=== PATIENT | female | born 1940 | race Caucasian/White ===

== ENCOUNTER 2025-01-25 14:15 | Emergency (ER) | payer OTHER ==
--- OUTSIDE RECORDS SUMMARY | 2025-01-25 14:17 | XMS REPORT | Continuity of Care Document ---
Author Name Unknown Address [address] [facility] [address] [place] [address] [facility] Address [address] [facility] [address] [place] [address] Care Team Providers [facility] Agent Name Role Phone Pcp, Patient Does Not Have A Primary Care Physic caden BRETT SOLIS Attending Clinician Unavailable YAMIL FOSTER Attending Clinician Unavailable Eula Magaña APRN Attending Clinician [phone] Kim Nielsen RN Attending Clinician YAMIL Womack Attending Clinician Amina Stewart MA Attending Clinician Devan Becerril NP Attending Clinician [phone] DEVAN PISANO Attending Clinician YAMIL Lizama Admitting Clinician YAMIL Womack Admitting Clinician Unavailable Payers Payer Name Policy Type Policy Number Effective Date Expirati on Date Source [employer] MEDICARE PPO [id number] 2021 00:00:00 MEDICARE PART A \T\ B [id number] 2022 00:00:00 2022 00:00:00 Problems Condition Name Condition Details Condition Category Status Onset Date Resolution Date Last Treatment Date Treating Clinician Comments Source Abundio salvador prolapse, complete Uterovagin al prolapse, complete Disease Active 02-02 00:00: 00 [facility] Dysuria Dysuria Disease Active 02-02 00:00: 00 [facility] Elevated blood pressure reading without diagnosis of hypertensi on Elevated blood pressure reading without diagnosis of hypertensi on Disease Active 02-02 00:00: 00 [facility] Hyperlipid emia, unspecifie d hyperlipid emia type Hyperlipid emia, unspecifie d hyperlipid emia type Disease Active 02-02 00:00: 00 [facility] Allergies, Adverse Reactions, Alerts Allergy Name Allergy Type Status Severity Reaction(s) Onset Date Inactive Date Treating Clinician Comments Source Oxytetra cycline Propensi ty to adverse reaction s Active 02-08 00:00: 00 [facility] Levoflox acin Propensi ty to adverse reaction s Active 02-08 00:00: 00 [facility] Codeine Propensi ty to adverse reaction s to drug Active Unknown - See comments 02-02 00:00: 00 [facility] Levamlod ipine Propensi ty to adverse reaction s Active Unknown - See comments 02-02 00:00: 00 [facility] Penicill in Propensi ty to adverse reaction s to drug Active Unknown - See comments 02-02 00:00: 00 [facility] Sulfa (Sulfona mide Antibiot ics) Propensi ty to adverse reaction s to drug Active Unknown - See comments 02-02 00:00: 00 [facility] Penicill in G Propensi ty to adverse reaction s Active 02-02 00:00: 00 Other reaction( s): Unknown - See comments [facility] Sulfa Antibiot ics Propensi ty to adverse reaction s Active 02-02 00:00: 00 Other reaction( s): Unknown - See comments [facility] Codeine Propensi ty to adverse reaction s Active 02-02 00:00: 00 Other reaction( s): Unknown - See comments [facility] Social History Social Habit Start Date Stop Date Quantity Comments Source Sexual orientation 2024-02-14 15:40:52 Heterosexual (finding) [facility] Alcoholic beverage intake 2024-02-21 00:00:00 2024-02-21 00:00:00 Current drinker of alcohol (finding) [facility] History of Social function 2024-02-21 00:00:00 2024-02-21 00:00:00 [facility] Exposure to SARS-CoV-2 (event) 2023-02-02 00:00:00 2023-02-12 18:56:00 Not sure [facility] Alcohol intake 2022-09-03 00:00:00 2022-09-03 00:00:00 Current drinker of alcohol (finding) [facility] Tobacco use and exposure 2022-02-08 00:00:00 2022-02-08 00:00:00 Smokeless tobacco non-user [facility] Sex assigned at 1940 00:00:00 1940 00:00:00 F [facility] Smoking Status Start Date Stop Date Source Never smoked tobacco [facility] Medications Ordered Medication Name Filled Medication Name Start Date Stop Date Current Medication? Ordering Clinician Indication Dosage Frequency Signature (SIG) Comments Components Source metoprolol succinate XL (Toprol-XL) 25 MG 24 hr tablet 01-15 00:00: 00 Yes 25mg QD Take 25 mg by mouth 1 (one) time each day. [facility] estradiol (Estrace) 0.1 MG/GM vaginal cream 2021-11 00:00: 00 Yes 5519 .5g Insert 0.5 g into the vagina 2 (two) times a week. 0.5 gram per vagina nightly for 7 days then 0.5 gram per vagina nightly twice weekly [facility] nitrofurant oin, macrocrysta l-monohydra te, (Macrobid) 100 MG capsule 05-28 00:00: 00 06-05 04:59 :00 No [id number] 100mg Q.5D Take 1 capsule (100 mg total) by mouth in the morning and 1 capsule (100 mg total) in the evening. Do all this for 7 days. [facility] metroNIDAZO LE (Flagyl) 500 MG tablet 05-14 00:00: 00 05-20 04:59 :00 No [id number] 500mg Q.5D Take 1 tablet (500 mg total) by mouth in the morning and 1 tablet (500 mg total) in the evening. Do all this for 5 days. [facility] nitrofurant oin, macrocrysta l-monohydra te, (Macrobid) 100 MG capsule 05-08 00:00: 00 05-16 04:59 :00 No [id number] 100mg Q.5D Take 1 capsule (100 mg total) by mouth in the morning and 1 capsule (100 mg total) in the evening. Do all this for 7 days. [facility] docusate sodium (Colace) 100 MG capsule 05-03 00:00: 00 Yes [id number] 100mg Q.5D Take 1 capsule (100 mg total) by mouth in the morning and 1 capsule (100 mg total) in the evening. [facility] ibuprofen 600 MG tablet 05-03 00:00: 00 05-11 04:59 :00 No [id number] 9105 600mg Q6H Take 1 tablet (600 mg total) by mouth every 6 (six) hours if needed for mild pain for up to 7 days. [facility] promethazin e (Phenergan) 25 MG tablet 05-03 00:00: 00 05-11 04:59 :00 No [id number] 12.5mg Q6H Take 0.5 tablets (12.5 mg total) by mouth every 6 (six) hours if needed for nausea or vomiting for up to 7 days. [facility] traMADol (Ultram) 50 MG tablet 05-03 00:00: 00 05-11 04:59 :00 No [id number] 9105 50mg Take 1 tablet (50 mg total) by mouth every 8 (eight) hours if needed for severe pain for up to 7 days. [facility] Myrbetriq 25 MG tablet sustained-r elease 24 hour -06 00:00: 00 08-04 00:00 :00 No 1{tbl} Take 1 tablet by mouth 1 (one) time each day in the morning. [facility] atorvastati n (Lipitor) 10 MG tablet 12-08 00:00: 00 Yes 10mg QD Take 10 mg by mouth 1 (one) time each day. [facility] Vital Signs Vital Name Observation Time Observation Value Comments S our Systolic blood pressure 2024-02-21 16:01:00 136 mm[Hg] [facility] Diastolic blood pressure 2024-02-21 16:01:00 78 mm[Hg] [facility] Body temperature 2024-02-21 16:01:00 36.67 Carmen [facility] Body height 2024-02-21 16:01:00 157.5 cm [facility] Body weight 2024-02-21 16:01:00 59.603 [facility] BMI 2024-02-21 16:01:00 24.03 kg/m2 [facility] Systolic blood pressure 2023-02-14 16:09:00 132 mm[Hg] [facility] Diastolic blood pressure 2023-02-14 16:09:00 70 mm[Hg] [facility] Body temperature 2023-02-14 16:09:00 36.22 Carmen [facility] Body height 2023-02-14 16:09:00 157.5 cm [facility] Body weight 2023-02-14 16:09:00 58.514 [facility] BMI 2023-02-14 16:09:00 23.59 kg/m2 [facility] Systolic blood pressure 2022-09-03 14:53:00 154 mm[Hg] [facility] Diastolic blood pressure 2022-09-03 14:53:00 84 mm[Hg] [facility] Heart rate 2022-09-03 14:53:00 89 /min [facility] Body temperature 2022-09-03 14:53:00 36.17 Carmen [facility] Body height 2022-09-03 14:53:00 157.5 cm [facility] Body weight 2022-09-03 14:53:00 56.246 [facility] BMI 2022-09-03 14:53:00 22.68 kg/m2 [facility] Systolic blood pressure 2022-07-29 19:09:00 136 mm[Hg] [facility] Diastolic blood pressure 2022-07-29 19:09:00 70 mm[Hg] [facility] Body temperature 2022-07-29 19:09:00 36.22 Carmen [facility] Body height 2022-07-29 19:09:00 157.5 cm [facility] Body weight 2022-07-29 19:09:00 58.514 [facility] BMI 2022-07-29 19:09:00 23.59 kg/m2 [facility] Systolic blood pressure 2022-06-17 19:03:00 134 mm[Hg] [facility] Diastolic blood pressure 2022-06-17 19:03:00 82 mm[Hg] [facility] Body height 2022-06-17 19:03:00 157.5 cm [facility] Body weight 2022-06-17 19:03:00 58.514 [facility] BMI 2022-06-17 19:03:00 23.59 kg/m2 [facility] Systolic blood pressure 2022-05-20 18:51:00 148 mm[Hg] [facility] Diastolic blood pressure 2022-05-20 18:51:00 80 mm[Hg] [facility] Body temperature 2022-05-20 18:51:00 36.44 Carmen [facility] Body height 2022-05-20 18:51:00 157.5 cm [facility] Body weight 2022-05-20 18:51:00 58.514 [facility] BMI 2022-05-20 18:51:00 23.59 kg/m2 [facility] Systolic blood pressure 2022-05-14 21:55:00 152 mm[Hg] [facility] Diastolic blood pressure 2022-05-14 21:55:00 87 mm[Hg] [facility] Heart rate 2022-05-14 21:55:00 99 /min [facility] Body temperature 2022-05-14 21:55:00 36.39 Carmen [facility] Body height 2022-05-14 21:55:00 157.5 cm [facility] Body weight 2022-05-14 21:55:00 58.627 [facility] BMI 2022-05-14 21:55:00 23.64 kg/m2 [facility] Systolic blood pressure 2022-05-10 13:09:00 130 mm[Hg] [facility] Diastolic blood pressure 2022-05-10 13:09:00 64 mm[Hg] [facility] Body temperature 2022-05-10 13:09:00 36.44 Carmen [facility] Body height 2022-05-10 13:09:00 157.5 cm [facility] Body weight 2022-05-10 13:09:00 57.153 kg [facility] BMI 2022-05-10 13:09:00 23.05 kg/m2 [facility] Systolic blood pressure 2022-02-02 21:33:00 164 mm[Hg] [facility] Diastolic blood pressure 2022-02-02 21:33:00 90 mm[Hg] [facility] Heart rate 2022-02-02 20:52:00 86 /min [facility] Body temperature 2022-02-02 20:52:00 36.78 Carmen [facility] Respiratory rate 2022-02-02 20:52:00 18 /min [facility] Body height 2022-02-02 20:52:00 157.5 cm [facility] Body weight 2022-02-02 20:52:00 57.97 kg [facility] BMI 2022-02-02 20:52:00 23.37 kg/m2 [facility] Oxygen saturation in Arterial blood by Pulse oximetry 2022-02-02 20:52:00 98 /min [facility] Procedures Procedure Date / Time Performed Performing Clinicia n Source POCT URINALYSIS DIPSTICK 2022-09-03 15:29:00 [facility] URINE CULTURE 2022-05-14 22:13:00 [facility] POCT URINALYSIS DIPSTICK 2022-05-14 22:13:00 [facility] hospital POCT URINALYSIS 2022-02-02 21:45:00 Cierra Hidalgo [facility] URINE CULTURE 2022-02-02 21:24:00 Cierra Hidalgo [facility] Encounters Start Date/Time End Date/Time Encounter Type Admission Type Attending Clinicians Care Facility Care Department Encounter ID Source 2023-02-14 10:51:48 Outpatient [facility] [id number] [facility] 2022-09-02 16:13:50 Outpatient [facility] [id number] [facility] 2022-02-02 08:57:03 Outpatient BRETT SOLIS [facility] [id number] [facility] 2025-02-21 11:20:00 2025-02-21 11:20:00 Outpatient YAMIL FOSTER [facility] [id number] [facility] 2024-02-21 11:00:00 2024-02-21 11:27:47 Office Visit Yamil Foster [facility] [place] [address] [place] 1.2.840.114 350.1.13.58 9.2.7.2.686 [id number] [facility] 2023-02-14 11:00:00 2023-02-14 11:23:29 Office Visit Yamil Foster [facility] [place] [address] [place] 1.2.840.114 350.1.13.58 9.2.7.2.686 [id number] [facility] 2022-11-01 11:20:00 2022-11-01 11:20:00 Outpatient YAMIL FOSTER [facility] [id number] [facility] 2022-09-03 10:10:00 2022-09-03 11:54:01 Office Visit Yamil Foster [facility] [address] 1.2.840.114 350.1.13.58 9.2.7.2.686 [id number] [facility] 2022-07-29 14:10:00 2022-07-29 14:35:21 Office Visit Yamil Foster [facility] [place] [address] [place] 1.2.840.114 350.1.13.58 9.2.7.2.686 [id number] [facility] 2022-06-17 14:10:00 2022-06-17 14:24:08 Office Visit Eula Magaña [facility] [place] [address] [place] 1.2.840.114 350.1.13.58 9.2.7.2.686 [id number] [facility] 2022-05-31 00:00:00 2022-05-31 00:00:00 Telephone Kim Nielsen Amanda [facility] [place] [address] [place] 1.2.840.114 350.1.13.58 9.2.7.2.686 [id number] [facility] 2022-05-28 00:00:00 2022-05-28 00:00:00 Telephone Kim Nielsen Amanda [facility] [place] [address] [place] 1.2.840.114 350.1.13.58 9.2.7.2.686 [id number] [facility] 2022-05-20 14:10:00 2022-05-20 14:14:58 Office Visit Yamil Foster [facility] [place] [address] [place] 1.2.840.114 350.1.13.58 9.2.7.2.686 [id number] [facility] 2022-05-19 00:00:00 2022-05-19 00:00:00 Telephone Kim Nielsen Amanda [facility] [place] [facility] [address] [place] 1.2.840.114 350.1.13.58 9.2.7.2.686 [id number] [facility] 2022-05-18 00:00:00 2022-05-18 00:00:00 Telephone Kim Nielsen Amanda [facility] [place] [facility] [address] [place] 1.2.840.114 350.1.13.58 9.2.7.2.686 [id number] [facility] 2022-05-14 16:10:00 2022-05-14 16:30:00 Office Visit Yamil Foster [facility] [address] 1.2.840.114 350.1.13.58 9.2.7.2.686 [id number] [facility] 2022-05-14 00:00:00 2022-05-14 00:00:00 Telephone Kim Nielsen Amanda [facility] [place] [facility] [address] [address] [place] 1.2.840.114 350.1.13.58 9.2.7.2.686 [id number] [facility] 2022-05-13 00:00:00 2022-05-13 00:00:00 Telephone Kim Nielsen Amanda [facility] [place] [facility] [address] [address] [place] 1.2.840.114 350.1.13.58 9.2.7.2.686 [id number] [facility] 2022-05-10 08:20:00 2022-05-10 09:09:30 Office Visit Yamil Foster [facility] [place] [facility] [address] [place] 1.2.840.114 350.1.13.58 9.2.7.2.686 [id number] [facility] 2022-05-05 05:58:00 2022-05-08 17:40:00 Inpatient YAMIL FOSTER [id number] FB 2022-05-05 08:30:00 2022-05-05 08:30:00 Outpatient YAMIL FOSTER [facility] [id number] [facility] 2022-05-04 00:00:00 2022-05-04 00:00:00 Telephone Kim Nielsen Amanda [facility] [place] [facility] [address] [address] [place] 1.2.840.114 350.1.13.58 9.2.7.2.686 [id number] [facility] 2022-04-29 13:40:00 2022-04-29 14:22:46 Consult Eula Magaña [facility] [place] [facility] [address] [place] 1.2.840.114 350.1.13.58 9.2.7.2.686 [id number] [facility] 2022-03-11 00:00:00 2022-03-11 00:00:00 Telephone Amina Domingo Diana [facility] [place] [facility] [address] [place] 1.2.840.114 350.1.13.58 9.2.7.2.686 [id number] [facility] 2022-03-08 14:10:00 2022-03-08 15:29:43 Procedure Visit Yamil Foster [facility] [place] [address] [place] 1.2.840.114 350.1.13.58 9.2.7.2.686 [id number] [facility] 2022-02-15 00:00:00 2022-02-15 00:00:00 Telephone Devan Pisano [facility] 1.2.840.114 350.1.13.10 4.2.7.2.686 [id number] [facility] 2022-02-08 14:50:00 2022-02-08 16:02:02 Office Visit Yamil Foster [facility] [place] [address] [place] 1.2.840.114 350.1.13.58 9.2.7.2.686 [id number] [facility] 2022-02-05 00:00:00 2022-02-05 00:00:00 Telephone Devan Pisano [facility] 1.2.840.114 350.1.13.10 4.2.7.2.686 [id number] [facility] 2022-02-02 15:30:00 2022-02-02 16:31:08 Office Visit Devan Pisano [facility] 1.2.840.114 350.1.13.10 4.2.7.2.686 [id number] [facility] 2022-02-02 15:30:00 2022-02-02 16:31:08 Outpatient R DEVAN PISANO [facility] [id number] [facility] 2022-02-02 15:30:00 2022-02-02 16:31:08 Outpatient R ALIYADEVAN ALIYA DEVAN [facility] [id number] [facility] Results Test Description Test Time Test Comments Results Result Co mments Source [facility] [id number] 05:00:00* Test Item Value Reference Range Interpretation Comme nts CULTURE, URINE, ROUTINE (test code = 638889237) SEE NOTE ?CULTURE, URINE, ROUTINE ? ?Micro Number: ? ? ?[id number] ?Test Status: ? ? ? Final ?Specimen Source: ? Urine ?Specimen Quality: ?Adequate ?Result: ?No Growth RAC (test code = RAC) Performing Organization Information: ? ?Site ID: [facility] ? ?Name: [employer] [facility] ? ?Address: [address] [place] [id number] ? ?Director: ALINA NAVARRO MD [facility] [id number] 22:13:00* Test Item Value Reference Range Interpretation Comme nts Color, UA (test code = 1076) Yellow Clarity, UA (test code = 5226205) Clear Glucose, UA (test code = 1060160) Negative Negative Bilirubin, UA (test code = 4512368) Negative Negative Ketones, Urine (test code = 28143-9) 15mg/dl Spec Grav, UA (test code = 006054997) Blood, UA (test code = 326830813) trace-intact pH, UA (test code = 3364144) 5.0-8.5 Protein, UA (test code = 2951242) Negative Negative, Trace, 200(+2)mg/dL, 15/mg/dL Urobilinogen, UA (test code = 1249207) See_Comment [[facility]ated [facility]] The system which generated this result transmitted reference range: 0.2. The reference range was not used to interpret this result as normal/abnormal. Nitrite, UA (test code = 4576554) Negative Negative, Trace Leukocytes, UA (test code = 0382922) Negative Negative, Trace Lab Interpretation (test code = 61347-9) Normal [facility] URINALYSIS W SPECIFIC [id number] 21:45:00* Test Item Value Reference Range Interpretation Comme nts POCT U SP GRAV (test code = 3255) 1.005 mg/dl 1.005-1.025 POCT PH U (test code = 3254) 7 mg/dl 5-8 POCT U LEUK EST (test code = 3263) Negative Negative - Negative POCT U NIT (test code = 3262) Negative Negative - Negati ve POCT U PROT (test code = 3259) Negative Negative - Negative POCT U GLU (test code = 3256) Negative Negative - Negati ve POCT U KETONE (test code = 3258) Negative Negative - Negative POCT U UROBILI (test code = 3260) Negative 0.2-1 POCT U BILI (test code = 3261) Negative Negative - Negative POCT U BLD (test code = 3257) Negative Negative - Negati ve POCT U COLOR (test code = 3266) yellow POCT U APPEAR (test code = 3267) [facility]
[2025-01-25 15:19] LABS: Absolute Eosinophils 0.1 K/uL (0-0.5); Absolute Lymphocytes (CBC) 1.2 K/uL (0.7-4.9); Absolute Monocytes 0.3 K/uL (0.1-1.3); Absolute Neutrophil 2.7 K/uL (1.8-8.0); Basophils % 0.5 % (0-1.3); Eosinophils % 2.6 % (0-4.4); Hematocrit 38.6 % (36.0-45.0); Hemoglobin 13.2 g/dL (12.0-15.0); Lymphocytes % 28.4 % (15.3-44.8); MCH 30.3 pg (27.0-35.0); MCHC 34.1 g/dL (32.0-36.0); MCV 88.8 fL (80-100); MPV 9.1 fL (7.6-11.3); Monocytes % 6.8 % (3.3-12.3); Neutrophils % 61.7 % (41.7-73.7); Platelets 218 thou/uL (152-406); RBC Red Blood Cell Count 4.35 M/uL (3.86-4.86); Red Cell Distribution Width 12.8 % (12.1-15.2)
[2025-01-25 15:28] LABS: PT Prothrombin Time 11.5 SECONDS (10-13.0); PTT, Activated Partial Thromb 29.8 SECONDS (27.2-37.4); Protime INR 1.01
[2025-01-25 15:36] LABS: ALT/SGPT 41 U/L (13-56); AST/SGOT 26 U/L (15-37); Albumin 3.7 g/dL (3.4-5.0); Alkaline Phosphatase 84 U/L (45-117); Anion Gap 9.2 mEq/L (5.0-15.0); BUN Blood Urea Nitrogen 16 mg/dL (7-18); Bicarbonate 27 mEq/L (21-32); Bilirubin Total 0.5 mg/dL (0.2-1.0); Globulin 3.6 g/dL (2.3-3.5); Glomerular Filtration Rate 69 ml/min (=/>90); Glucose Level 105 mg/dL (74-106); Potassium 4.2 mEq/L (3.5-5.1); Protein, Total 7.3 g/dL (6.4-8.2); Sodium Level 139 mEq/L (136-145)
[2025-01-25 15:38] LABS: Bilirubin Direct < 0.2 mg/dL (0-0.2); Bilirubin Indirect, Calculated 0.3 mg/dL (0.2-0.8); Troponin High Sensitivity < 3.0 pg/mL (<58.9)
--- NOTE | 2025-01-25 16:20 | RAD REPORT ---
EXAMINATION: ONE VIEW CHEST XR CLINICAL INDICATION: Female, 84 years old.,CHEST PAIN TECHNIQUE: Frontal chest projection is submitted. Examination is limited by patient positioning and t echnique. COMPARISON: 06/14/2017 FINDINGS: The lungs are well inflated and clear. No pneumothorax or sizable effusion. The heart is normal in s ize. Mediastinal contours are unremarkable. IMPRESSION: No acute intrathoracic abnormalities.
--- NOTE | 2025-01-25 17:02 | RAD REPORT ---
EXAM: CT Head Brain Wo Cont HISTORY: l sided numbness COMPARISON: None TECHNIQUE: Multiple contiguous axial images were obtained for a CT of the brain without contrast. Sag ittal and coronal reformats were performed. One or more of the following dose reduction techniques were used: Automated exposure control, adjus tment of the mA and kV according to patient size, and iterative reconstruction. Unless otherwise specified, incidental findings do not require dedicated imaging follow-up. FINDINGS: No evidence of hydrocephalus, intracranial hemorrhage, or extra-axial fluid collection. The brain is normal in morphology. The calvarium is intact. Flattening of the right mandibular condylar head, could relate to prior or repeated subluxations. The visualized paranasal sinuses and mastoid air cells are essentially clear. IMPRESSION: No evidence of acute intracranial abnormality. Flattening of the right mandibular condylar head, could relate to prior or repeated subluxations.
--- NOTE | 2025-01-25 17:07 | RAD REPORT ---
EXAMINATION: CTA HEAD CLINICAL INDICATION: Female, 84 years old. l sided numbness TECHNIQUE: Axial CT images were obtained through the head after intravenous contrast utilizing angiog raphic protocol with 3D post-processing (maximum intensity projection images, volume rendered images and/or shaded surface rendered images). One or more of the following dose reduction technique s were used: Automated exposure control, adjustment of the mA and/or kV according to patient size, and/or iterative reconstruction. Unless otherwise specified, incidental findings do not require dedic ated imaging follow-up. COMPARISON: Noncontrast head CT of the same day FINDINGS: ICA: The petrous, cavernous, and supraclinoid segments of the bilateral internal carotid arteries are normal. SUSAN: Anterior cerebral arteries are normal bilaterally. The anterior communicating artery is patent. MCA: Middle cerebral arteries are normal bilaterally. SPEECH CLINICIAN: Posterior cerebral arteries are normal bilaterally. Vertebrobasilar: The vertebral arteries are patent. The basilar artery is normal in appearance. 3D images confirm these findings. IMPRESSION: No evidence of large vessel occlusion or hemodynamically significant stenosis.
--- NOTE | 2025-01-25 17:09 | RAD REPORT ---
EXAMINATION: CT Neck Angio CLINICAL INDICATION: Female, 84 years old. [facility] l sided numbness Bed Name: 14 TECHNIQUE: Axial CT images were obtained from the aortic arch to the skull base after intravenous con trast utilizing angiographic protocol. Multiplanar reformats, as well as 3D post-processing (maximum intensity projection images, volume rendered images and/or shaded surface rendered images) w ere generated and reviewed. One or more of the following dose reduction techniques were used: Automated exposure control, adjustment of the mA and/or kV according to patient size, and/or iterativ e reconstruction. Unless otherwise specified, incidental findings do not require dedicated imaging follow-up. COMPARISON: No prior exam. FINDINGS: AORTA: The imaged aortic arch is normal. Variant anatomy of the arch with left vertebral artery arisi ng directly from the arch. CCA: No artifact The common carotid arteries are patent and normal in caliber. ICA/ECA: Bilateral internal and external carotid arteries are patent. There is no significant interna l carotid artery stenosis. VERTEBRAL: The cervical vertebral arteries are patent to the skull base. Vertebral arteries are codom inant. SOFT TISSUE: No significant neck soft tissue abnormalities. The visualized lung apices are clear. 3D images confirm these findings. IMPRESSION: No significant flow abnormality of the neck vessels is identified. NASCET criteria used to quantify ICA stenosis, with the following grading scheme: Mild 0-49% stenosis Moderate 50-69% stenosis Severe 70-99% stenosis Reference: [place] Symptomatic Carotid Endarterectomy Trial Collaborators; Laila BUCKLEY, Katerina ANNA, Rena RB, et al. Beneficial effect of carotid endarterectomy in symptomatic patients with high-grade carotid stenosis. N Engl J Med. 1990Jun 28;325(7):445-53.
--- NOTE | 2025-01-25 18:08 | ER ---
Nurse's Notes [facility] Name: Angelica Ochoa Age: 84 yrs Sex: Female : 1940 Arrival Date: 01/25/2025 Time: 14:15 Bed 14 Private MD: Diagnosis: Chest pain, unspecified;Numbness to left side of face;Numbness to left arm Presentation: 01/25 14:19 Chief complaint: Intermittent left arm tingling and SOB x 2 weeks, intermittent left hb sided facial tingling x 1 month, intermittent left sided chest pain since this morning that became worse 2 hours ago. Coronavirus screen: At this time, the client does not indicate any symptoms associated with coronavirus-19. Ebola Screen: No symptoms or risks identified at this time. Initial Sepsis Screen: Does the patient meet any 2 criteria? No. Patient's initial sepsis screen is negative. Does the patient have a suspected source of infection? No. Patient's initial sepsis screen is negative. Risk Assessment: Do you want to hurt yourself or someone else? Patient reports no desire to harm self or others. Onset of symptoms was January 23, 2025. 14:19 Method Of Arrival: Ambulatory hb 14:19 Acuity: CB 2 hb Triage Assessment: 14:35 General: Appears in no apparent distress. Behavior is cooperative. Pain: Complains of kj2 pain in chest pain. Historical: - Allergies: 14:21 PENICILLINS; hb 14:21 Sulfa (Sulfonamide Antibiotics); hb 14:21 Codeine; hb 14:21 Levaquin; hb - PMHx: 14:27 Hypertension; hb - Immunization history:: Adult Immunizations up to date. - Infectious Disease History:: Denies. - Social history:: Smoking status: Patient denies any tobacco usage or history of. - Family history:: not pertinent. Screenin:36 [facility] ED Fall Risk Assessment (Adult) History of falling in the last 3 months, kj2 including since admission No falls in past 3 months (0 pts) Confusion or Disorientation No (0 pts) Intoxicated or Sedated No (0 pts) Impaired Gait No (0 pts) Mobility Assist Device Used No (0 pt) Altered Elimination No (0 pt) Score/Fall Risk Level 0 - 2 = Low Risk Maintained a safe environment, Hourly rounding (assess needs \T\ fall precautionary measures) done. Abuse screen: Denies threats or abuse. Denies injuries from another. Nutritional screening: No deficits noted. Tuberculosis screening: No symptoms or risk factors identified. Assessment: 14:34 General: Appears in no apparent distress. Behavior is calm, cooperative. Pain: praveen Complains of pain in left side chest, left arm Pain does not radiate. Pain began 2-3 days ago. Neuro: Level of Consciousness is awake, alert, obeys commands, Oriented to person, place, time, situation. Cardiovascular: Reports chest pain, Patient's skin is warm and dry. Respiratory: Reports shortness of breath on exertion. GI: No signs and/or symptoms were reported involving the gastrointestinal system. : No signs and/or symptoms were reported regarding the genitourinary system. 15:30 Reassessment: Patient appears in no apparent distress at this time. Patient and/or mariaa2 family updated on plan of care and expected duration. Pain level reassessed. Patient is alert, oriented x 3, equal unlabored respirations, skin warm/dry/pink. 16:30 Reassessment: Patient appears in no apparent distress at this time. Patient and/or kj2 family updated on plan of care and expected duration. Pain level reassessed. Patient is alert, oriented x 3, equal unlabored respirations, skin warm/dry/pink. 17:25 Reassessment: Patient appears in no apparent distress at this time. Patient and/or kj2 family updated on plan of care and expected duration. Pain level reassessed. Patient is alert, oriented x 3, equal unlabored respirations, skin warm/dry/pink. 18:11 Reassessment: Patient appears in no apparent distress at this time. Patient and/or kj2 family updated on plan of care and expected duration. Pain level reassessed. Patient is alert, oriented x 3, equal unlabored respirations, skin warm/dry/pink. Vital Signs: 14:19 BP 161 / 99; Pulse 68; Resp 18; Temp 97.9(TE); Pulse Ox 100% on R/A; Weight 58.97 kg; hb Height 5 ft. 2 in. ; Pain /; 15:30 BP 126 / 78; Pulse 90; Resp 20; Pulse Ox 100% ; kj2 16:30 BP 125 / 79; Pulse 86; Resp 20; Pulse Ox 100% on R/A; kj2 17:31 BP 139 / 75; Pulse 92; Resp 20; Pulse Ox 100% on R/A; kj2 18:12 BP 132 / 72; Pulse 88; Resp 18; Temp 98; Pulse Ox 100% on R/A; kj2 14:19 Body Mass Index 23.78 (58.97 kg, 157.48 cm) hb 14:19 Pain Scale: Adult hb ED Course: 14:18 Patient arrived in ED. hb 14:19 Douglas Jay MD is Attending Physician. rt 14:21 Triage completed. hb 14:22 Arm band placed on. hb 14:30 EKG done, by ED staff, reviewed by Douglas Jay MD. hb 14:34 Steafny Block, RN is Primary Nurse. kj2 14:36 Patient has correct armband on for positive identification. Bed in low position. Call kj2 light in reach. Adult w/ patient. Provided Education on: call light. Client placed on continuous cardiac and pulse oximetry monitoring. NIBP monitoring applied. monitoring specialist on. 14:37 No provider procedures requiring assistance completed. Patient maintains SpO2 kj2 saturation greater than 95% on room air. 15:20 Chest Single View XRAY In Process Unspecified. EDMS 15:58 CT Head Angio In Process Unspecified. EDMS 15:58 CT Neck Angio In Process Unspecified. EDMS 15:58 CT Head Brain wo Cont In Process Unspecified. EDMS 18:13 IV discontinued, intact, bleeding controlled, No redness/swelling at site. Pressure kj2 dressing applied. Administered Medications: No medications were administered Medication: 14:37 VIS not applicable for this client. kj2 Outcome: 18:07 Discharge ordered by . rt 18:13 Discharged to home ambulatory, with family, kj2 18:13 Condition: good 18:13 Discharge instructions given to patient, family, Instructed on discharge instructions, follow up and referral plans. Demonstrated understanding of instructions, follow-up care, 18:45 Patient left the ED. kj2 Signatures: Dispatcher [employer] EDElma Banks RN Douglas Conteh MD MD rt Stefany Block, RYLAND RN kj2 Corrections: (The following items were deleted from the chart) 14:27 14:19 Chief complaint: Intermittent left sided chest pain that radiates to left arm, hb back, and face x 3 days, became worse 2 hours ago. hb 17:31 17:26 BP 125 / 79; Pulse 86bpm; Resp 20bpm; Pulse Ox 100% RA; kj2 kj2
--- NOTE | 2025-01-25 18:08 | EDPHYS ---
Physician Documentation [facility] Name: Angelica Ochoa Age: 84 yrs Sex: Female : 1940 Arrival Date: 01/25/2025 Time: 14:15 Bed 14 Private MD: ED Physician Douglas Jay HPI: 01/25 18:46 This 84 yrs old Female presents to ER via Ambulatory with complaints of Chest Pain. rt 18:46 Patient presents to the ED with chest pain, reported left face, arm numbness. Patient rt states that this has been present for several weeks to a month, states that it worsened today. Reports some exertional dyspnea. States the chest pain has improved, reports ongoing numbness to the left arm, left side of the face, denies any numbness to the legs, weakness. Denies other acute plaints at this time, symptoms are moderate in severity, no other aggravating alleviating factors.. Historical: - Allergies: 14:21 PENICILLINS; hb 14:21 Sulfa (Sulfonamide Antibiotics); hb 14:21 Codeine; hb 14:21 Levaquin; hb - PMHx: 14:27 Hypertension; hb - Immunization history:: Adult Immunizations up to date. - Infectious Disease History:: Denies. - Social history:: Smoking status: Patient denies any tobacco usage or history of. - Family history:: not pertinent. ROS: 18:46 Constitutional: Negative for fever, chills, and weight loss, Abdomen/GI: Negative for rt abdominal pain, nausea, vomiting, diarrhea, and constipation, MS/Extremity: Negative for injury and deformity, 18:46 Cardiovascular: Positive for chest pain, Negative for edema, 18:46 Respiratory: Positive for shortness of breath, Negative for cough, 18:46 Neuro: Positive for numbness, Negative for weakness, Exam: 18:46 Constitutional: This is a well developed, well nourished patient who is awake, alert, rt and in no acute distress. Head/Face: Normocephalic, atraumatic. Chest/axilla: Normal chest wall appearance and motion. Nontender with no deformity. No lesions are appreciated. Cardiovascular: Regular rate and rhythm with a normal S1 and S2. No gallops, murmurs, or rubs. Normal PMI, no JVD. No pulse deficits. Respiratory: Lungs have equal breath sounds bilaterally, clear to auscultation and percussion. No rales, rhonchi or wheezes noted. No increased work of breathing, no retractions or nasal flaring. Abdomen/GI: Soft, non-tender, with normal bowel sounds. No distension or tympany. No guarding or rebound. No evidence of tenderness throughout. Skin: Warm, dry with normal turgor. Normal color with no rashes, no lesions, and no evidence of cellulitis. MS/ Extremity: Pulses equal, no cyanosis. Neurovascular intact. Full, normal range of motion. 18:46 ECG was reviewed by the Attending Physician. 18:46 Neuro: Speech normal, sensory deficit to the left side of the face, cranial nerves otherwise intact, extraocular muscles intact, sensory deficit on the left upper extremity, strength and sensation intact otherwise on the extremities., Vital Signs: 14:19 BP 161 / 99; Pulse 68; Resp 18; Temp 97.9(TE); Pulse Ox 100% on R/A; Weight 58.97 kg; hb Height 5 ft. 2 in. ; Pain 1/10; 15:30 BP 126 / 78; Pulse 90; Resp 20; Pulse Ox 100% ; kj2 16:30 BP 125 / 79; Pulse 86; Resp 20; Pulse Ox 100% on R/A; kj2 17:31 BP 139 / 75; Pulse 92; Resp 20; Pulse Ox 100% on R/A; kj2 18:12 BP 132 / 72; Pulse 88; Resp 18; Temp 98; Pulse Ox 100% on R/A; kj2 14:19 Body Mass Index 23.78 (58.97 kg, 157.48 cm) hb 14:19 Pain Scale: Adult hb MDM: 14:21 Medical Screening Exam initiated rt 18:46 Differential diagnosis: CVA, TIA, paresthesia, nonspecific chest pain, ACS, pneumonia. rt Data reviewed: vital signs, nurses notes, lab test result(s), EKG, radiologic studies. Consideration of Admission/Observation Escalation of care including admission/observation considered. Management of patient was discussed with the following: Discussed with patient's PCP and Dr. Vale. Dr. Vale states that this is an acute ischemic event, likely small thalamic infarct requiring medical management only. States that MRI would be of benefit, however, no MRIs over the weekend. States that as the symptoms have been present for some time, would possibly be appropriate for outpatient management. Discussed this with the patient's primary care who is in agreement this plan, will start dual antiplatelet therapy, high-dose statin, folic acid. This was discussed with the patient who is in agreement with this plan, wishes to go home, will follow-up as an outpatient and return to the ED for worsening symptoms. Independent interpretation of the following test(s) in the Emergency Department CT Scan: My interpretation is No intracranial hemorrhage seen on my interpretation of CT scan images. Care significantly affected by the following chronic conditions: Hypertension. Counseling: I had a detailed discussion with the patient and/or guardian regarding the historical points, exam findings, and any diagnostic results supporting the discharge/admit diagnosis, lab results, radiology results, the need for outpatient follow up, to return to the emergency department if symptoms worsen or persist or if there are any questions or concerns that arise at home. Response to treatment: the patient's symptoms have markedly improved after treatment. 01/25 14:34 Order name: Basic Metabolic Panel; Complete Time: 15:45 rt 01/25 14:34 Order name: CBC with Diff; Complete Time: 15:45 rt 01/25 14:34 Order name: Hepatic Function; Complete Time: 15:45 rt 01/25 14:34 Order name: High Sensitivity Troponin; Complete Time: 15:45 rt 01/25 14:34 Order name: Protime (+inr); Complete Time: 15:45 rt 01/25 14:34 Order name: Ptt, Activated; Complete Time: 15:45 rt 01/25 14:34 Order name: CT Head Angio; Complete Time: 17:10 rt 01/25 14:34 Order name: CT Neck Angio; Complete Time: 17:10 rt 01/25 14:34 Order name: CT Head Brain wo Cont; Complete Time: 17:10 rt 01/25 14:34 Order name: Chest Single View XRAY; Complete Time: 17:10 rt 01/25 14:34 Order name: Accucheck rt 01/25 14:34 Order name: Cardiac monitoring; Complete Time: 15:13 rt 01/25 14:34 Order name: EKG - Nurse/Tech; Complete Time: 14:40 rt 01/25 14:34 Order name: IV Saline Lock; Complete Time: 15:11 rt 01/25 14:34 Order name: Labs collected and sent; Complete Time: 15:11 rt 01/25 14:34 Order name: NPO; Complete Time: 15:13 rt 01/25 14:34 Order name: O2 Per Protocol; Complete Time: 15:13 rt 01/25 14:34 Order name: O2 Sat Monitoring; Complete Time: 15:13 rt 01/25 14:34 Order name: Stroke Swallow Screen rt EC:46 Rate is 72 beats/min. Rhythm is regular, Normal Sinus Rhythm with No ectopy. QRS [place] rt is Normal. [place] interval is normal. QT interval is normal. No Q waves. T waves are Normal. No ST changes noted. Interpreted by me. Administered Medications: No medications were administered Disposition Summary: 01/25/25 18:07 Discharge Ordered Notes: Location: Home rt Problem: new rt Symptoms: have improved rt Condition: Stable rt Diagnosis - Chest pain, unspecified rt - Numbness to left side of face rt - Numbness to left arm rt Followup: rt - With: Private Physician - When: 5 - 6 days - Reason: Discharge Instructions: - Discharge Summary Sheet rt - Nonspecific Chest Pain, Adult rt - Paresthesia rt - Transient Ischemic Attack rt Forms: - Medication Reconciliation Form rt - Antibiotic Education rt - Prescription Opioid Use rt - Patient Portal Instructions rt - Leadership Thank You Letter rt Prescriptions: - aspirin 81 mg Oral capsule - take 1 capsule ORAL route daily; 30 capsule; Refills: 0, Product Selection rt Permitted - atorvastatin 40 mg Oral tablet - take 1 tablet ORAL route daily; 30 tablet; Refills: 0, Product Selection rt Permitted - Plavix 75 mg Oral tablet - take 1 tablet ORAL route once daily; 30 tablet; Refills: 0, Product Selection rt Permitted - Folic Acid 1 mg Oral Tablet - take 1 tablet ORAL route once daily; 30 tablet; Refills: 0, Product Selection rt Permitted Signatures: Dispatcher [employer] EDMS Elma Richards RN RN hb [place], Ryan, MD MD rt Corrections: (The following items were deleted from the chart) 14:35 14:35 BASIC METABOLIC PANEL+C.LAB.BRZ ordered. EDMS EDMS 14:35 14:35 CBC+H.LAB.BRZ ordered. EDMS EDMS 14:35 14:35 HEPATIC FUNCTION+C.LAB.BRZ ordered. EDMS EDMS 14:35 14:35 Troponin High Sensitivity+C.LAB.BRZ ordered. EDMS EDMS 14:35 14:35 PROTIME (+INR)+COAG.LAB.BRZ ordered. EDMS EDMS 14:35 14:35 PTT, ACTIVATED+COAG.LAB.BRZ ordered. EDMS EDMS 14:35 14:35 Head Angio+CT.RAD.BRZ ordered. EDMS EDMS 14:35 14:35 Neck Angio+CT.RAD.BRZ ordered. EDMS EDMS 14:35 14:35 Head Brain Wo Cont+CT.RAD.BRZ ordered. EDMS EDMS 14:35 14:35 Chest Single View+RAD.RAD.BRZ ordered. EDMS EDMS
[2025-01-25 19:21] VITALS: O2SAT 100
[2025-01-25 19:26] VITALS: BP 132/72; TEMP 98
== END 2025-01-25 18:45 | disposition home or self-care (01) ==
LOC: SUPCPDRO 14:15 → ER 14:15
DX: R07.9 Chest pain, unspecified (principal); R20.0 Anesthesia of skin; R06.00 Dyspnea, unspecified; I10 Essential (primary) hypertension
CPT/HCPCS: 85025; 80048; 36415; 85610; 80076; 85730; 84484; 70450; 70496; 70498; 71045; 99284; Q9967; 93005